=== PATIENT | female | born 1985 | race Caucasian/White ===

== ENCOUNTER 2019-11-17 15:57 | Outpatient (CLI) | payer OTHER ==
[~2019-11-17] VITALS: Ht 157.5 cm; Wt 60.4 kg
[2019-11-17] MEDS ORDERED: PRENTAB9 PO (16:19)
[2019-11-17 17:22] LABS: AMORPHOUS SEDIMENT SMALL (NEGATIVE); APPEARANCE, URINE CLOUDY (CLEAR); BACTERIA, URINE AUTO NEGATIVE (NEGATIVE); BILIRUBIN, URINE AUTO NEGATIVE (NEGATIVE); BLOOD, URINE BLOOD NEGATIVE (NEGATIVE); COLOR, URINE YELLOW (YELLOW); GLUCOSE, URINE (UA) AUTO NEGATIVE (NEGATIVE); KETONE, URINE AUTO 1+ mg/dL (NEGATIVE); LEUKOCYTE ESTERASE, URINE AUTO 1+ (NEGATIVE); NITRITE, URINE AUTO NEGATIVE (NEGATIVE); PROTEIN, URINE AUTO NEGATIVE (NEGATIVE); RBC, URINE AUTO 1 /HPF (0-3); SPECIFIC GRAVITY URINE AUTO 1.011 (1.002-1.035); SQUAMOUS EPITHELIAL CELL UR AU 1 /HPF (0-6); UROBILINOGEN, URINE AUTO 0.2 mg/dL (0.0-2.0); WBC, URINE AUTO 0 /HPF (0-3)
[2019-11-17] MEDS ORDERED: ONDANSETRON 4MG/2ML VIAL As Ordered ONE (17:23)
[2019-11-17] MEDS: LACTATED RINGER'S 1000 ML IV STA (17:27)
[2019-11-17] MEDS: ONDANSETRON 4MG/2ML VIAL IV ONE (17:28)
[2019-11-17] MEDS: LR 1,000 ML IV SCH (17:28)
[2019-11-17] MEDS: PANTOPRAZOLE 40MG VIAL (C9113 PER 1) IV ONE (18:24)
== END 2019-11-17 18:40 ==
LOC: M LDO 15:57
PROVIDERS: ATTEND Obstetrics & Gynecology
DX: O26.833 Pregnancy related renal disease, third trimester (principal); R10.9 Unspecified abdominal pain; O09.523 Supervision of elderly multigravida, third trimester; Z3A.30 30 weeks gestation of pregnancy